=== PATIENT | female | born 1975 | race African-American/Black ===

== ENCOUNTER 2017-08-11 09:30 | Inpatient (IN) | payer OTHER ==
[2017-08-14] MEDS ORDERED: CeleCOXIB 100 MG CAP ONE (06:08)
[2017-08-14] MEDS ORDERED: Gabapentin 300 MG CAP ONE ×2 (06:08→06:43)
[2017-08-14] MEDS ORDERED: CEFAZOLIN/Water 2 GM/20 ML SYRINGE ONE (06:09)
[2017-08-14] MEDS ORDERED: Famotidine/PF 20 mg/2ml Vial ONE (06:10)
[2017-08-14] MEDS ORDERED: Fentanyl 250 MCG/5 ML VIAL ONE (06:11)
[2017-08-14] MEDS ORDERED: Ondansetron HCl/PF 4 MG/2 ML Vial ONE ×2 (06:11→12:10)
[2017-08-14] MEDS ORDERED: Midazolam HCl 2 mg/2 ml Vial ONE (06:11)
[2017-08-14] MEDS ORDERED: Bupivacaine HCl 0.5%/Epinephrine 1:200,000/PF 30 ml Vial ONE (07:02)
[2017-08-14] MEDS ORDERED: Lidocaine 2% Jelly 5 ML TUBE ONE (07:24)
[2017-08-14] MEDS ORDERED: Ropivacaine 0.2% 550 ML 750 ML NERVE BLCK SCH (08:00)
[2017-08-14] MEDS ORDERED: Ropivacaine HCl/PF 750 ML in Premix Bag 1 BAG NERVE BLCK SCH (08:00)
[2017-08-14] MEDS ORDERED: Promethazine HCl 25 MG/ML VIAL SLOW IVP PRN (09:37)
[2017-08-14] MEDS ORDERED: HYDROmorphone 2 MG/ML VIAL SLOW IVP PRN (09:37)
[2017-08-14] MEDS ORDERED: Promethazine HCl 25 MG/ML VIAL IM PRN ×2 (09:37→13:36)
[2017-08-14] MEDS ORDERED: Ondansetron HCl/PF 4 MG/2 ML Vial IVP PRN ×2 (09:37→13:36)
[2017-08-14] MEDS ORDERED: Fentanyl 100 MCG/2 ML VIAL ONE ×2 (09:59→11:12)
--- NOTE | 2017-08-14 11:31 | OP ---
DATE OF PROCEDURE: 08/14/2017 PREOPERATIVE DIAGNOSES: 1. Abnormal uterine bleeding. 2. Uterine fibroids. 3. Anemia, previously requiring a transfusion. 4. Persistent cervical intraepithelial neoplasia 2 (prior LEEP x3). POSTOPERATIVE DIAGNOSES: 1. Abnormal uterine bleeding. 2. Uterine fibroids. 3. Anemia, previously requiring a transfusion. 4. Persistent cervical intraepithelial neoplasia 2 (prior LEEP x3). PROCEDURE: 1. Robotic assisted total laparoscopic hysterectomy. 2. Bilateral salpingectomy. SURGEON: Francisca Ingram D.O. DINKEY SKINNER: Hernesto Alonso M.D. ANESTHESIA: General. COMPLICATIONS: None. ESTIMATED BLOOD LOSS: 50 mL. IV FLUIDS: 1300 mL. URINE OUTPUT: 320 mL. FINDINGS: Normal appearing external genitalia, normal vaginal epithelium. Cervix with appearance o f a previous LEEP procedures. Uterus 12 cm in length, normal appearing bilateral fallopian tube remn ants, adhesions of the bilateral ovaries to the posterior aspect of the uterus, ureteral peristalsis notified transperitoneally. INDICATIONS FOR THE PROCEDURE: Ms. Nicci Gonzales is a 42-year-old G4, P4 who presented for evaluation due to abnormal uterine bleeding, known uterine fibroids and a history of persistent SCOTTY 2 after 3 p rior LEEPS. The patient was counseled on medical versus surgical management of her abnormal uterine bleeding and due to 3 prior LEEP and persistent SCOTTY 2, hysterectomy was recommended as the amount of cervical tissue was minimal and an additional excisional procedure was likely to not be possible. Th e patient underwent an ultrasound that showed a 12 cm uterus and both anterior and posterior fibroids . She underwent an endometrial biopsy which was benign and her cervical biopsies showed persistent C IN 2. PROCEDURE IN DETAIL: The patient was brought to the operating room. She was placed under general an esthesia and Ancef was given for surgical prophylaxis. The patient was positioned in dorsal lithotom y position using Bobby stirrups and appropriately positioned for robotic surgery and her arms were tu cked. The patient was prepped and draped in the sterile fashion. An official timeout was performed. The vaginal portion was examined with a single sided speculum. The anterior aspect of the cervix w as grasped using a single tooth tenaculum. The cervix was sequentially dilated using Jake dilators. Uterine sounded to approximately 9 cm in length. A GAL manipulator was placed and the cup was appr opriately secured to the ectocervix. The bladder was drained and syringe was attached to the cathete r for later backfill if needed. Gloves are changed and attention was turned to the abdominal portion . A supraumbilical incision was made using the scalpel. The Veress needle was inserted into the per itoneal cavity and the peritoneal cavity was insufflated using carbon dioxide, noting a normal pressu re. The 12 mm trocar was inserted at this site, the robotic camera was then inserted and the patient was placed in Trendelenburg position. The anatomy was evaluated, noting the findings above. Additio nal ports were placed on the right and left aspect of the abdomen, two robotic ports placed, one in t he right and one on the left aspect of the abdomen. Additional 11 mm port placed on the right aspect of the abdomen. All trocar sites were injected with local anesthesia and all were placed under dire ct visualization. The robot was then appropriately docked to the patient. The robotic instruments w ere inserted using monopolar scissors and bipolar fenestrated forceps. The ureteral course was noted transperitoneally before proceeding. The left fallopian tube was removed in its entirety from the d istal to proximal end, the left ovary was firmly adhered to the posterior aspect of the uterus and th deidra adhesions were transected. There was a small hemorrhagic cyst ruptured during this process. On ce the ovary was free from the uterus, the utero-ovarian ligament could then be coagulated and this w as coagulated and transected. Attention was turned to the round ligament on the left side which was coagulated and transected allowing entrance into the broad ligament. The posterior aspect of the bro ad ligament was undermined and this was carried down towards the level of the uterosacral ligaments n oting the course of the ureter during this process. The anterior aspect of the peritoneum was underm ined as well and transected allowing anterior reflection of the bladder on the left aspect. The uter ine vessels were further skeletonized on the left aspect, then coagulated multiple times; however, no t yet transected. Attention was then turned over to the right aspect of the uterus. The right ovary was also firmly attached the posterior aspect of the uterus. These adhesions were transected using a monopolar device to allow the ovary to fall freely. The remnant of the left fallopian tube was the n removed from the ovary using monopolar and bipolar. The utero-ovarian ligament was also coagulated and transected on the right aspect. The right round ligament was coagulated and transected, both of which allowed for entrance into the broad ligament. The posterior aspect of the broad ligament was undermined and transected down towards the level of uterosacral ligament, anterior aspect was undermi tiffani and also transected allowing further reflection of the bladder. The right uterine vessels did kwong ve bleeding due to this transection, they were coagulated multiple times to create hemostasis. Atten tion was turned to the anterior aspect again, the filmy areolar tissue along the cervical vaginal emile ction was elevated and transected to allow for moves delineation along the cervical vaginal junction and allow complete inferior flexion of the bladder. This was performed anteriorly both on the right and left aspect of the uterus. Attention was turned back over to the left aspect of the uterus. The left uterine vessels were again coagulated multiple times and then transected. Attention was turned back over to the right uterine vessels which were then coagulated additionally and then transected a nd did require more coagulation on this side to achieve hemostasis likely to do due to neovasculariza tion from the cervical dysplasia and uterine fibroids. The colpotomy was begun anteriorly in a sweep ing motion, noting the blue manipulator cup. This was carried along the left aspect and posteriorly. The right aspect required additional coagulation with the bipolar and then was transected. The [place] yesenia and cervix and the manipulator were removed vaginally. The pelvis was irrigated and cleared of a ll clot and debris. There was area of bleeding on the very apex of both the right and left aspect of the vaginal cuff due to superficial wood router hand vessels within the vaginal cuff. The cuff was graspe d and elevated away from the pelvic sidewall and these were coagulated. The pelvis was then irrigate d and cleared of all clot and debris. The hysterotomy was closed in a running fashion using 0 Strata suture. The initial suture did break along the midline. Therefore, the cuff was then closed from t he left aspect going towards the midline and then an additional interrupted suture at the midline to create a good cuff closure. The pelvis was again irrigated and cleared of all clot and debris. The pedicle sites were all evaluated noting hemostasis. The ON-Q pump was inserted under direct visualiz ation and the catheter was placed in the pelvis. The instruments were removed. The robot was undock ed. The patient was taken out of Trendelenburg position. The abdomen was deflated and trocars were removed. The 12 mm trocar site was closed by closing the fascia using #0 Vicryl in interrupted sutur e. The skin of all sites was closed using 4-0 Monocryl and Dermabond. The patient tolerated the pro cedure well. There were no complications. All counts were correct x2. She will be transferred to [facility] PACU in hemodynamically stable condition.
[2017-08-14] MEDS ORDERED: Glycopyrrolate 0.2 MG/ML 5 ML SYRINGE ONE (12:10)
[2017-08-14] MEDS ORDERED: Dexamethasone 20 MG/5 ML VIAL ONE (12:10)
[2017-08-14] MEDS ORDERED: PROPOFOL 200 MG/20 ML VIAL ONE (12:10)
[2017-08-14] MEDS ORDERED: Lidocaine 1% PF 5 ML VIAL ONE (12:10)
[2017-08-14] MEDS ORDERED: Zolpidem Tartrate 5 MG TAB PO PRN (13:36)
[2017-08-14] MEDS ORDERED: Bisacodyl 10 MG SUPP PR PRN (13:36)
[2017-08-14] MEDS ORDERED: diphenhydrAMINE 25 MG CAP PO PRN (13:36)
[2017-08-14] MEDS ORDERED: traMADol HCl 50 MG TAB PO PRN ×2 (13:36)
[2017-08-14] MEDS ORDERED: Morphine 5 MG/ML SYRINGE SLOW IVP PRN (13:36)
[2017-08-14] MEDS ORDERED: oxyCODONE ER 10 MG TAB PO PRN (13:36)
[2017-08-14] MEDS ORDERED: Acetaminophen 325 MG TAB PO PRN (14:00)
[2017-08-14] MEDS: Ketorolac Tromethamine 30 MG/ML VIAL IVP SCH ×2 (14:22→20:42)
[2017-08-14] MEDS: Simethicone Chewable 80 MG TAB PO PRN (20:44)
[2017-08-14] MEDS: Dextrose 5 %-0.45 % NaCl 1,000 ML IV SCH ×2 (20:47→20:50)
[2017-08-15] MEDS: Ketorolac Tromethamine 30 MG/ML VIAL IVP SCH ×2 (02:58→09:19)
[2017-08-15 05:36] LABS: #Lymphocytes 1.8 thou/uL (1.20-3.40); #Monocytes 0.8 thou/uL (0.11-0.59); #Neutrophils 8.9 thou/uL (1.40-6.50); %Basophils 0.1 % (0.0-1.0); %Eosinophils 0.1 % (0.0-10.0); %Lymphocytes 15.4 % (21.0-51.0); %Monocytes 7.2 % (0.0-10.0); %Neutrophils 77.3 % (42.0-75.0); Hemoglobin 8.4 g/dL (12.0-16.0); Mean Corpuscular HGB CONC 31.7 g/dL (32.0-36.0); Mean Corpuscular Hemoglobin 24.2 pg (27.0-31.0); Mean Corpuscular Volume 76.3 fl (81.0-99.0); Mean Platelet Volume 8.5 fL (7.4-10.4); Platelet Count 462 thou/uL (130-400); RBC Distribution Width 18.8 % (11.5-14.5); Red Blood Cell (RBC) Count 3.46 mill/uL (4.20-5.40); White Blood Cell (WBC) Count 11.5 thou/uL (4.8-10.8)
[2017-08-15 05:44] LABS: Anion Gap 10 mmol/L (10-20); BUN (Urea Nitrogen) 9 mg/dL (7.0-18.7); Calc. Creatinine Clearance 0 mL/min (70-130); Calcium 8.8 mg/dL (7.8-10.44); Carbon Dioxide 25 mmol/L (22-29); Chloride 105 mmol/L (98-107); Estimated GFR-MDRD Greater than 90; Glucose 123 mg/dL (70-105); Potassium 3.7 mmol/L (3.5-5.1); Sodium 136 mmol/L (136-145)
[2017-08-15] MEDS: Dextrose 5 %-0.45 % NaCl 1,000 ML IV SCH (06:45)
[2017-08-15] MEDS ORDERED: Ibuprofen 800 MG TAB PO PRN (07:56)
--- NOTE | 2017-08-15 08:28 | PRG ---
DATE OF SERVICE: 08/15/2017 HISTORY OF PRESENT ILLNESS: A 42-year-old female, status post robotic-assisted total laparoscopic hy sterectomy and a bilateral salpingectomy for abnormal uterine bleeding with uterine fibroids and pers istent CIN2. SUBJECTIVE: The patient complains of mild abdominal pain this morning. She reports passing flatus a nd voiding without difficulty. She denies any vaginal bleeding. The patient denies any nausea, vomi ting, fevers, or chills. She is tolerating liquids and has ordered breakfast this morning. OBJECTIVE: VITAL SIGNS: Stable. CARDIOVASCULAR: Regular rate. RESPIRATORY: Unlabored breathing. ABDOMEN: Soft. Mild tenderness to palpation throughout as expected postoperatively. Positive bowel sounds x4 quadrants. ON-Q pump in place. Laparoscopic incisions are clean, dry, and intact with De rmabond. EXTREMITIES: SCDs in place. No edema. Negative Homans'. LABORATORY DATA: Hemoglobin 8.4, hematocrit 26.4, platelets 462, creatinine is 0.73. ASSESSMENT: 1. Postoperative day #1, status post robotic-assisted total laparoscopic hysterectomy with a bilater al salpingectomy. 2. Anemia. PLAN: The patient is meeting requirements this morning as expected for postoperative day #1. I am a dvancing diet this morning to a general diet. Plan for discharge this morning after breakfast, as toby galeana is meeting all her requirements including voiding, passing flatus, tolerating orals, and her pain i s controlled with oral medication.
[2017-08-15] MEDS ORDERED: HYDROcodone/Acetaminophen 5/325 mg Tablet PO SCH (12:00)
[2017-08-15] MEDS: Simethicone Chewable 80 MG TAB PO PRN (13:01)
[2017-08-15 13:18] VITALS: BP 128/72; TEMP 98.6
--- NOTE | 2017-08-16 01:52 | DIS ---
DATE OF ADMISSION: 08/14/2017 DATE OF DISCHARGE: 08/15/2017 ADMISSION AND DISCHARGE PHYSICIAN: Francisca Ingram D.O. ADMISSION DIAGNOSES: 1. Status post robotic assisted total laparoscopic hysterectomy with bilateral salpingectomy. 2. Anemia. POSTOPERATIVE DIAGNOSES: 1. Status post robotic assisted total laparoscopic hysterectomy with bilateral salpingectomy. 2. Anemia. BRIEF HOSPITAL COURSE: Ms. Nicci Gonzales is a 42-year-old female, who underwent a robotic assisted to dada laparoscopic hysterectomy with bilateral salpingectomy for treatment of abnormal uterine bleeding and anemia. The patient's intraoperative and postoperative course had been benign. She is meeting all requirements for discharge. She is ambulating, voiding, passing flatus and tolerating a general diet and her pain is controlled with oral pain medications. FOLLOWUP: Follow up in 2 weeks. ACTIVITY: Reviewed importance of pelvic rest, no heavy lifting, pushing or pulling for 6 weeks. MEDICATIONS: 1. Sparks 5/325 one tablet p.o. q.6 hours p.r.n. pain. 2. Motrin 800 mg 1 p.o. q.8 hours p.r.n. pain DIET: General. CODE STATUS: FULL. STATUS: Good.
== END 2017-08-15 16:04 | disposition home or self-care (01) | DRG 743 ==
LOC: SURG A 08-14 05:42 → 3SE 08-14 12:31
PROVIDERS: ADMIT Obstetrics & Gynecology; ATTEND Obstetrics & Gynecology
PROC: 0UT9FZZ Resection of Uterus, Via Natural or Artificial Opening With Percutaneous Endoscopic Assistance (ICD-10-PCS; principal; 2017-08-14)
PROC: 8E0W4CZ Robotic Assisted Procedure of Trunk Region, Percutaneous Endoscopic Approach (ICD-10-PCS; 2017-08-14)
DX: N93.9 Abnormal uterine and vaginal bleeding, unspecified (principal); D25.1 Intramural leiomyoma of uterus; N92.6 Irregular menstruation, unspecified; D64.9 Anemia, unspecified
CPT/HCPCS: 36415; 80048; 85025; 88307; J2270; J0670; J1100; J1885; J2001; J2250; J2405; J2704; J2795; J3010; S0028

== ENCOUNTER 2017-08-11 12:04 | Outpatient (CLI) | payer OTHER ==
[2017-08-11 12:58] VITALS: BMI 31.9
[2017-08-11 13:57] LABS: Hemoglobin 9.2 g/dL (12.0-16.0); Mean Corpuscular HGB CONC 32.4 g/dL (32.0-36.0); Mean Corpuscular Hemoglobin 24.6 pg (27.0-31.0); Mean Corpuscular Volume 75.8 fl (81.0-99.0); Mean Platelet Volume 8.3 fL (7.4-10.4); Platelet Count 398 thou/uL (130-400); RBC Distribution Width 19.3 % (11.5-14.5); Red Blood Cell (RBC) Count 3.76 mill/uL (4.20-5.40); White Blood Cell (WBC) Count 5.7 thou/uL (4.8-10.8)
[2017-08-11 14:20] LABS: ALT (SGPT) 8 U/L (8-55); AST (SGOT) 17 U/L (5-34); Albumin 4.5 g/dL (3.5-5.0); Alkaline Phosphatase 61 U/L (40-150); Anion Gap 9 mmol/L (10-20); BUN (Urea Nitrogen) 8 mg/dL (7.0-18.7); Bilirubin, Total 0.4 mg/dL (0.2-1.2); Calc. Creatinine Clearance 145 mL/min (70-130); Calcium 9.3 mg/dL (7.8-10.44); Carbon Dioxide 24 mmol/L (22-29); Chloride 108 mmol/L (98-107); Estimated GFR-MDRD Greater than 90; Globulin 2.9 g/dL (2.4-3.5); Glucose 94 mg/dL (70-105); Potassium 4.1 mmol/L (3.5-5.1); Protein, Total 7.4 g/dL (6.0-8.3); Sodium 137 mmol/L (136-145)
[2017-08-11 14:40] LABS: BHCG - Serum Negative (NEGATIVE); Pregs Control Background? CLEAR/WHITE (CLR/WHITE); Pregs Control Bar Appear? YES (CONTROL BAR)
== END 2017-08-11 12:05 | disposition home or self-care (01) ==
LOC: LABBT 12:04
PROVIDERS: ATTEND Obstetrics & Gynecology
DX: Z01.812 Encounter for preprocedural laboratory examination (principal); D64.9 Anemia, unspecified; D21.9 Benign neoplasm of connective and other soft tissue, unspecified; N92.6 Irregular menstruation, unspecified
CPT/HCPCS: 80053; 84703; 85027; 86850; 86870; 86900; 86901; 86905; 86922